=== PATIENT | female | born 1975 | race Caucasian/White ===

== ENCOUNTER → 2018-03-03 | Outpatient (CLI) | payer BC | LOC: MC.RAD 11:34 | DX: Z12.31 Encounter for screening mammogram for malignant neoplasm of breast (principal); N63.21 Unspecified lump in the left breast, upper outer quadrant; Z98.82 Breast implant status ==

== ENCOUNTER 2018-03-05 23:59 | Emergency (ER) | payer BC ==
[2018-03-06 00:35] LABS: BASO % 0.3 % (0.0-2.0); EOS # 0.1 (0.0-0.7); EOS % 0.4 % (0-4.0); GRAN # 13.2 (1.4-6.5); GRAN % 85.4 % (42.2-75.2); HEMOGLOBIN 13.6 g/dl (12.5-16.0); LYMPH % 6.5 % (20.0-51.0); MEAN CELL VOLUME 90 fl (80.0-100.0); MEAN CORPUSCULAR HEMOGLOBIN 32 pg (27.0-31.0); MEAN CORPUSCULAR HGB CONC 35 g/dl (33.0-37.0); MEAN PLATELET VOLUME 9.5 fl (7.4-10.4); MONO # 1.1 (0.1-0.6); MONO % 6.9 % (1.7-9.3); PLATELET COUNT 268 K/mm3 (130-400); RED BLOOD COUNT 4.32 M/mm3 (4.10-5.30); REDCELL DISTRIBUTION WIDTH-CV 12.1 % (11.5-14.5)
[2018-03-06 00:47] LABS: ALBUMIN 4.3 gm/dL (3.5-5.0); BILIRUBIN,TOTAL 0.4 mg/dL (0.0-1.0); CALCIUM 9.5 mg/dL (8.4-10.2); CREATININE, serum 0.92 mg/dL (0.52-1.25); POTASSIUM 3.7 mmol/L (3.4-5.0); TOTAL PROTEIN 8.5 gm/dL (6.4-8.2)
[2018-03-06 01:06] LABS: COLLECTION METHOD CLEAN CATCH
[2018-03-06 01:11] LABS: MUCOUS Present /lpf; PH 5 (5-8); URINE APPEARANCE Hazy; URINE BACTERIA Rare /hpf; URINE BILIRUBIN Negative (NEGATIVE); URINE BLOOD 1+ (NEGATIVE); URINE COLOR Yellow; URINE GLUCOSE Negative (NEGATIVE); URINE KETONE Negative (NEGATIVE); URINE LEUKOCYTE ESTERASE Negative (NEGATIVE); URINE NITRATE Negative (NEGATIVE); URINE PROTEIN(semi-quant) Negative (NEGATIVE); URINE RBC 0-2 /hpf; URINE UROBILINOGEN Negative (NEGATIVE)
[2018-03-06] MEDS ORDERED: PHENERGAN 25 TA25 MG PO (01:47)
[2018-03-06] MEDS ORDERED: CIPRO 500MG TA500 MG PO (01:47)
[2018-03-06] MEDS ORDERED: FLAGYL500 MG PO (01:47)
[2018-03-06 02:35] VITALS: BP 142/89; PULSE 99; TEMP 101.1
== END 2018-03-06 02:35 | disposition home or self-care (01) ==
LOC: COL.ER 23:59
PROVIDERS: Emergency Medicine
DX: K52.9 Noninfective gastroenteritis and colitis, unspecified (principal); Z90.49 Acquired absence of other specified parts of digestive tract; Z90.710 Acquired absence of both cervix and uterus
CPT/HCPCS: J2270; J2405; J7030; Q9967

== ENCOUNTER 2020-02-12 09:37 | Emergency (ER) | payer BC ==
[~2020-02-12] VITALS: Ht 165.1 cm; Wt 75.5 kg
[~2020-02-12 09:37] MED LIST: CIPRO 500MG TA500 MG PO; FLAGYL500 MG PO; PHENERGAN 25 TA25 MG PO
[2020-02-12 09:49] VITALS: BP 149/94; TEMP 97.9
[2020-02-12 11:50] VITALS: PULSE 71
== END 2020-02-12 12:20 | disposition home or self-care (01) ==
LOC: COL.ER 09:37
DX: F41.9 Anxiety disorder, unspecified (principal)

== ENCOUNTER → 2020-05-16 | Outpatient (CLI) | payer BC | LOC: MC.RAD 07:10 | DX: Z12.31 Encounter for screening mammogram for malignant neoplasm of breast (principal); Z98.82 Breast implant status; N63.21 Unspecified lump in the left breast, upper outer quadrant ==

== ENCOUNTER 2020-09-21 21:27 | Emergency (ER) | payer BC ==
[~2020-09-21] VITALS: Ht 165.1 cm; Wt 77.3 kg
[2020-09-21 21:38] VITALS: TEMP 99.1
[2020-09-21 21:58] LABS: COLLECTION METHOD CLEAN CATCH
[2020-09-21 22:09] LABS: MUCOUS Present /lpf; PH 7 (5-8); SQUAMOUS EPITHELIAL 0-2 /hpf; URINE APPEARANCE Clear; URINE BACTERIA Rare /hpf; URINE BILIRUBIN Negative (NEGATIVE); URINE BLOOD Negative (NEGATIVE); URINE COLOR Straw; URINE GLUCOSE Negative (NEGATIVE); URINE KETONE Negative (NEGATIVE); URINE LEUKOCYTE ESTERASE Negative (NEGATIVE); URINE NITRATE Negative (NEGATIVE); URINE PROTEIN(semi-quant) Negative (NEGATIVE); URINE RBC None Seen /hpf; URINE UROBILINOGEN Negative (NEGATIVE)
[2020-09-21 22:31] LABS: BASO # 0.1 (0.0-0.2); BASO % 0.7 % (0.0-2.0); EOS % 0.4 % (0-4.0); GRAN # 4.9 (1.4-6.5); HEMATOCRIT 39.8 % (37.0-47.0); HEMOGLOBIN 13.9 g/dl (12.5-16.0); LYMPH # 1.2 (1.2-3.4); LYMPH % 16.5 % (20.0-51.0); MEAN CELL VOLUME 88 fl (80.0-100.0); MEAN CORPUSCULAR HEMOGLOBIN 31 pg (27.0-31.0); MEAN CORPUSCULAR HGB CONC 35 g/dl (33.0-37.0); MEAN PLATELET VOLUME 9.4 fl (7.4-10.4); MONO # 0.9 (0.1-0.6); MONO % 12.8 % (1.7-9.3); PLATELET COUNT 233 K/mm3 (130-400); RED BLOOD COUNT 4.54 M/mm3 (4.10-5.30)
[2020-09-21 22:53] LABS: ALBUMIN 4.5 gm/dL (3.5-5.0); BILIRUBIN,TOTAL 0.4 mg/dL (0.0-1.0); C-REACTIVE PROTEIN 1.9 mg/dL (0.0-0.9); CALCIUM 9.3 mg/dL (8.4-10.2); CREATININE, serum 0.88 (0.52-1.25); POTASSIUM 3.5 mmol/L (3.4-5.0); TOTAL PROTEIN 7.9 gm/dL (6.4-8.2)
[2020-09-22] MEDS ORDERED: NORCO 325 MG-51 TAB PO (00:34)
[2020-09-22 00:53] VITALS: BP 167/94; PULSE 87
== END 2020-09-22 00:55 | disposition home or self-care (01) ==
LOC: COL.ER 21:27
PROVIDERS: Physician Assistant
DX: R10.9 Unspecified abdominal pain (principal); Z87.442 Personal history of urinary calculi; Z90.49 Acquired absence of other specified parts of digestive tract; Z90.710 Acquired absence of both cervix and uterus; Z32.02 Encounter for pregnancy test, result negative; Z79.2 Long term (current) use of antibiotics
CPT/HCPCS: J1885; J2270; J2405; J7030

== ENCOUNTER → 2020-12-14 | Outpatient (CLI) | payer BC ==
[~2020-12-14] MED LIST changes: +NORCO 325 MG-51 TAB PO
== END ==
LOC: COL.RAD 07:27
DX: K30 Functional dyspepsia (principal)
CPT/HCPCS: A9541

== ENCOUNTER → 2021-06-22 | Outpatient (CLI) | payer BC | LOC: MC.RAD 07:45 | DX: Z12.31 Encounter for screening mammogram for malignant neoplasm of breast (principal); Z98.82 Breast implant status ==

== ENCOUNTER → 2021-09-11 | Outpatient (CLI) | payer BC | LOC: COL.RAD 13:59 | DX: N20.0 Calculus of kidney (principal); R91.8 Other nonspecific abnormal finding of lung field; Z90.49 Acquired absence of other specified parts of digestive tract ==

== ENCOUNTER 2021-11-08 21:10 | Emergency (ER) | payer BC ==
[~2021-11-08] VITALS: Ht 165.1 cm; Wt 77.3 kg
[2021-11-08 21:56] LABS: BASO % 0.5 % (0.0-2.0); EOS # 0.2 K/mm3 (0.0-0.7); EOS % 2.2 % (0.0-4.0); GRAN # 3.7 K/mm3 (1.4-6.5); GRAN % 50.3 % (42.2-75.2); HEMATOCRIT 39.1 % (37.0-47.0); HEMOGLOBIN 13.7 g/dl (12.5-16.0); LYMPH # 2.8 K/mm3 (1.2-3.4); LYMPH % 37.3 % (20.0-51.0); MEAN CELL VOLUME 89 fl (80.0-100.0); MEAN CORPUSCULAR HEMOGLOBIN 31 pg (27-31); MEAN CORPUSCULAR HGB CONC 35 g/dl (33.0-37.0); MEAN PLATELET VOLUME 9.7 fl (7.4-10.4); MONO # 0.7 K/mm3 (0.1-0.6); MONO % 9.3 % (1.7-9.3); PLATELET COUNT 327 K/mm3 (130-400); RED BLOOD COUNT 4.42 M/mm3 (4.10-5.30); REDCELL DISTRIBUTION WIDTH-CV 12.6 % (11.5-14.5)
[2021-11-08 22:11] LABS: ALANINE AMINOTRANSFERASE 21 U/L (0-55); ALBUMIN 4.4 gm/dL (3.5-5.0); ALKALINE PHOSPHATASE 73 U/L (40-150); ANION GAP 12 mmol/L (7-16); AST,SGOT 23 U/L (5-34); BILIRUBIN,TOTAL 0.3 mg/dL (0.2-1.2); BLOOD UREA NITROGEN 15 mg/dL (7-19); C-REACTIVE PROTEIN 0.12 mg/dL (0.00-0.50); CALCIUM 9.8 mg/dL (8.4-10.2); CARBON DIOXIDE 21 mmol/L (22-29); CHLORIDE 107 mmol/L (98-107); CREATININE, serum 0.88 mg/dL (0.57-1.11); GLUCOSE 143 mg/dL (70-99); LIPASE 66 U/L (8-78); POTASSIUM 3.5 mmol/L (3.5-4.5); SODIUM 140 mmol/L (136-145); TOTAL PROTEIN 7.8 gm/dL (6.2-8.1)
[2021-11-08 22:35] LABS: TROPONIN-I < 0.010 ng/mL (0.00-0.033)
[2021-11-08] MEDS ORDERED: PROTONIX 40MG T40 MG PO (22:59)
[2021-11-08] MEDS ORDERED: CARAFATE 1GM1 G PO (22:59)
[2021-11-08 23:08] VITALS: BP 141/78; PULSE 61; TEMP 98.3
== END 2021-11-08 23:08 | disposition home or self-care (01) ==
LOC: COL.ER 21:10
PROVIDERS: Emergency Medicine
DX: K29.70 Gastritis, unspecified, without bleeding (principal); R07.9 Chest pain, unspecified; K21.9 Gastro-esophageal reflux disease without esophagitis; Z90.49 Acquired absence of other specified parts of digestive tract; Z79.899 Other long term (current) drug therapy
CPT/HCPCS: C9113; J7030

== ENCOUNTER 2022-02-10 16:05 | Emergency (ER) | payer BC ==
[~2022-02-10] VITALS: Ht 165.1 cm; Wt 77.3 kg
[~2022-02-10 16:05] MED LIST changes: +CARAFATE 1GM1 G PO; +PROTONIX 40MG T40 MG PO
[2022-02-10 16:09] VITALS: TEMP 98.3
[2022-02-10 17:09] VITALS: BP 133/95; PULSE 71
== END 2022-02-10 17:10 | disposition home or self-care (01) ==
LOC: COL.ER 16:05
DX: S09.90XA Unspecified injury of head, initial encounter (principal); S00.01XA Abrasion of scalp, initial encounter; Z28.310 Unvaccinated for COVID-19; W20.8XXA Other cause of strike by thrown, projected or falling object, initial encounter

== ENCOUNTER 2022-02-14 04:19 | Emergency (ER) | payer BC ==
[~2022-02-14] VITALS: Ht 165.1 cm; Wt 75.5 kg
[2022-02-14 04:24] VITALS: TEMP 98.2
[2022-02-14] MEDS ORDERED: ANTIVERT 25MG25 MG PO (04:40)
[2022-02-14 04:50] VITALS: BP 146/80; PULSE 70
== END 2022-02-14 04:50 | disposition home or self-care (01) ==
LOC: COL.ER 04:19
DX: F07.81 Postconcussional syndrome (principal); W22.8XXA Striking against or struck by other objects, initial encounter

== ENCOUNTER 2022-02-24 17:50 | Emergency (ER) | payer BC ==
[~2022-02-24] VITALS: Ht 165.1 cm; Wt 75.5 kg
[~2022-02-24 17:50] MED LIST changes: +ANTIVERT 25MG25 MG PO
[2022-02-24 18:03] VITALS: TEMP 98.1
[2022-02-24 21:23] VITALS: BP 142/103; PULSE 64
== END 2022-02-24 21:23 | disposition home or self-care (01) ==
LOC: COL.ER 17:50
DX: F07.81 Postconcussional syndrome (principal); Z28.310 Unvaccinated for COVID-19

== ENCOUNTER → 2023-02-06 | Outpatient (CLI) | payer BC | LOC: MC.RAD 07:54 | DX: Z12.31 Encounter for screening mammogram for malignant neoplasm of breast (principal) ==